=== PATIENT | male | born 1990 | race African-American/Black ===

== ENCOUNTER 2019-09-19 11:33 | Emergency (ER) | payer MEDICAID ==
[~2019-09-19] VITALS: Ht 172.7 cm; Wt 73.0 kg
[2019-09-19 11:55] VITALS: Ht 172.7 cm; Wt 73.0 kg
[2019-09-19 13:40] VITALS: BP 112/76
== END 2019-09-19 13:40 | disposition home or self-care (01) ==
LOC: ED 11:33
DX: R07.89 Other chest pain (principal)